=== PATIENT | female | born 1960 | race Caucasian/White ===

== ENCOUNTER 2018-07-20 06:56 | Day surgery (SDC) | payer OTHER ==
[~2018-07-20] VITALS: Ht 152.4 cm; Wt 48.9 kg
[2018-07-20] MEDS ORDERED: LISI10TA2 PO (08:15)
[2018-07-20] MEDS ORDERED: ACET-2047 PO (08:15)
[2018-07-20 08:17] VITALS: Ht 152.4 cm; Wt 48.9 kg
[2018-07-20 08:23] VITALS: BP 153/76; PULSE 66; RESP 18
[2018-07-20 09:39] VITALS: BP 130/64; PULSE 52; RESP 20
[2018-07-20 09:44] VITALS: BP 114/54; PULSE 64; RESP 18
[2018-07-20] MEDS ORDERED: FENTAnyl 50 MCG/ML VIAL ONE (09:46)
[2018-07-20] MEDS ORDERED: MIDAZOLAM 1 MG/ML 2 ML INJ ONE ×3 (09:46)
[2018-07-20 09:49] VITALS: BP 118/60; PULSE 61; RESP 18
--- NOTE | 2018-07-21 12:31 | CONS ---
DATE OF ADMISSION: 07/20/2018 DATE OF CONSULTATION: PATIENT NAME: RHODA LAUGHLIN TYPE OF CONSULTATION: Preoperative gastroenterology Dear Dr. Mosqueda: I thank you very much for this kind referral. HISTORY OF PRESENT ILLNESS: Ms. Rhoda Laughlin is a 58-year-old female patient who has been referred t o me for further evaluation of change in the bowel habit with left lower quadrant abdominal pain. Th e patient had episode of diarrhea, nausea and vomiting, and she went to the emergency room. She had abdominal CT scan done and it was suspicious for colitis. The patient was treated with antibiotics a nd now the diarrhea has resolved. No past history of colon neoplasm. The patient never had screenin g colonoscopy. Her appetite is poor and she has been losing weight. No upper abdominal pain, nausea or vomiting. Not on nonsteroidal anti-inflammatory agents. No history of gallstones or liver disea se. She is hypertensive. Not a diabetic. No heart disease, lung problem or kidney disease. She muniz s arthritis of both knees. SOCIAL HISTORY: Nonsmoker. No alcohol abuse. FAMILY HISTORY: No family history of gastrointestinal tract neoplasm. ALLERGIES: NO DRUG ALLERGIES. MEDICATIONS: 1. Lisinopril. 2. Atenolol. 3. Tylenol. PHYSICAL EXAMINATION: VITAL SIGNS: She is 5 feet tall and weighs 111 pounds. HEART: Normal heart sounds. LUNGS: Clear. ABDOMEN: Soft, no masses. Normal bowel sounds. NEUROLOGIC: Normal neurological exam. IMPRESSION: 1. Change in the bowel habit. 2. Left lower quadrant abdominal pain. 3. Weight loss. 4. The patient had an episode of acute gastroenteritis. 5. She was treated with antibiotic and now the diarrhea has resolved. 6. The patient never had screening colonoscopy. 7. Hypertension. 8. Arthritis of both knees. PLAN: Screening colonoscopy. The procedure and possible complications are well explained to the patient. She understands and cons ents to the procedure. I thank you once again. With warmest personal regards, Dictated By: LEX BOYLE/JEFFERSON Conf#: [id number] DID#: [id number]
== END 2018-07-20 15:04 | disposition home or self-care (01) ==
LOC: GIL 06:56
PROVIDERS: ATTEND Internal Medicine Gastroenterology
DX: Z12.11 Encounter for screening for malignant neoplasm of colon (principal); K64.8 Other hemorrhoids; I10 Essential (primary) hypertension
CPT/HCPCS: 45378; J2250; J3010